=== PATIENT | male | born 1995 | race Two or more races ===

== ENCOUNTER 2016-12-19 10:35 | Emergency (ER) | payer SELFPAY ==
[2016-12-19 16:35] VITALS: BP 136/86
[2016-12-19] MEDS ORDERED: TRIAMCINOLONE ACETONIDE 10 MG/ML IX ONE (17:15)
[2016-12-19] MEDS ORDERED: LIDOCAINE 1% HCL (LOCAL ANESTH.) INJ 20ML MDV IJ ONE (17:15)
[2016-12-19] MEDS ORDERED: TRIAMCINOLONE 40MG/ML 1ML VIAL ONE (17:17)
[2016-12-19] MEDS ORDERED: TRIAMCINOLONE 40MG/ML 1ML VIAL IX ONE (17:30)
== END 2016-12-19 18:12 | disposition home or self-care (01) ==
LOC: ER 10:41
DX: S82.001A Unspecified fracture of right patella, initial encounter for closed fracture (principal); W01.0XXA Fall on same level from slipping, tripping and stumbling without subsequent striking against object, initial encounter; Y93.89 Activity, other specified; Y92.89 Other specified places as the place of occurrence of the external cause; Y99.8 Other external cause status
CPT/HCPCS: 20610; 29505; 73564; 73700; 87205; 99285; J2001; J3301

== ENCOUNTER 2018-02-13 20:33 | Inpatient (IN) | payer MEDICAID, OTHER ==
[~2018-02-13] VITALS: Ht 165.1 cm; Wt 56.2 kg
[2018-02-13 22:30] LABS: Basophils # (auto) 0 uL; Basophils % (auto) 0.3 % (0.0-2.0); Eosinophils # (auto) 0 uL; Eosinophils % (auto) 0.4 % (0.0-7.0); Hematocrit 39.6 % (41.0-53.0); Hemoglobin 13.3 g/dL (13.5-17.5); Lymphocytes # (auto) 1.2 uL; Lymphocytes % (auto) 10.4 % (10.0-50.0); Mean Corpuscular Hemoglobin 29.3 pg (28.0-32.0); Mean Corpuscular Hgb Conc. 33.7 g/dL (32.0-36.0); Monocytes # (auto) 0.6 uL; Monocytes % (auto) 5.5 % (0.0-12.0); Neutrophils # (auto) 9.2 uL; Neutrophils % (auto) 83.4 % (37.0-80.0); Nucleated Red Blood Cells % 0.1 %; Platelet Count (auto) 220 10^3/uL (140-450); Red Blood Cells 4.56 10^6/uL (4.5-5.90); Red Cell Distribution Width 13.5 % (11.8-14.3); White Blood Cell 11.1 10^3/uL (4.4-10.8)
[2018-02-13 22:43] LABS: Albumin 3.6 g/dL (3.4-5.0); Calcium 8.7 mg/dL (8.5-10.1); Magnesium 2.1 mg/dL (1.6-2.6); Potassium 4.2 mmol/L (3.5-5.1)
[2018-02-13 22:47] LABS: BUN/Creatinine Ratio 2.7
[2018-02-13 22:51] LABS: Bilirubin, Total 0.8 mg/dL (0.2-1.0); Total Protein 7.9 g/dL (6.4-8.2)
[2018-02-13 22:53] LABS: INR 0.94 (0.9-1.15); Partial Thromboplastin Time 27.9 sec (23.78-33.04); Prothrombin Time 10.1 sec (9.27-12.13)
[2018-02-13] MEDS ORDERED: diphenhdrAMINE HCL 25 MG CAP PO ONE (23:00)
[2018-02-13] MEDS ORDERED: PANTOPRAZOLE 40 MG/10 ML VIAL IV ONE ×2 (23:06→23:15)
[2018-02-14] MEDS ORDERED: ACETAMINOPHEN 500 MG TAB PO PRN (03:15)
[2018-02-14] MEDS ORDERED: ENOXAPARIN SOD 60 MG/0.6 ML SYRINGE SC ONE (03:15)
[2018-02-14] MEDS ORDERED: cloNIDine HCL 0.1 MG TAB PO ONE (03:30)
[2018-02-14 04:30] VITALS: BP 160/86
[2018-02-14] MEDS: hydrALAZINE HCL 25 MG TAB PO SCH ×4 (06:12→23:49)
[2018-02-14] MEDS: HEPARIN SODIUM (PORCINE) 5000 UNITS/ML 1ML VIAL SC SCH ×3 (06:12→22:18)
[2018-02-14 08:09] LABS: Basophils # (auto) 0.1 uL; Basophils % (auto) 0.7 % (0.0-2.0); Eosinophils # (auto) 0.2 uL; Eosinophils % (auto) 1.9 % (0.0-7.0); Hematocrit 38.3 % (41.0-53.0); Hemoglobin 12.6 g/dL (13.5-17.5); Lymphocytes % (auto) 24.5 % (10.0-50.0); Mean Corpuscular Hemoglobin 28.8 pg (28.0-32.0); Mean Corpuscular Hgb Conc. 33.1 g/dL (32.0-36.0); Monocytes # (auto) 0.9 uL; Monocytes % (auto) 11.1 % (0.0-12.0); Neutrophils % (auto) 61.8 % (37.0-80.0); Nucleated Red Blood Cells % 0.1 %; Platelet Count (auto) 203 10^3/uL (140-450); Red Cell Distribution Width 13.8 % (11.8-14.3); White Blood Cell 8.1 10^3/uL (4.4-10.8)
[2018-02-14 08:22] LABS: BUN/Creatinine Ratio 3.1; Calcium 9.1 mg/dL (8.5-10.1); Potassium 5.5 mmol/L (3.5-5.1)
[2018-02-14] MEDS: CALCIUM ACETATE 667 MG CAP PO SCH ×3 (08:23→18:00)
[2018-02-14 09:00] VITALS: BP 146/74
[2018-02-14] MEDS: NIFEdipine ER 30 MG TAB PO SCH (09:33)
[2018-02-14] MEDS: LABETALOL HCL 200 MG TAB PO SCH ×2 (09:35→22:17)
[2018-02-14] MEDS: ASPirin-EC 81 mg tab PO SCH (10:56)
[2018-02-14 13:00] VITALS: BP 142/94
[2018-02-14 16:52] VITALS: BP 135/79
[2018-02-15 05:09] VITALS: BP 156/97
[2018-02-15] MEDS: hydrALAZINE HCL 25 MG TAB PO SCH ×3 (06:20→18:00)
[2018-02-15 07:02] LABS: Basophils # (auto) 0 uL; Basophils % (auto) 0.8 % (0.0-2.0); Eosinophils # (auto) 0.2 uL; Eosinophils % (auto) 3.8 % (0.0-7.0); Hematocrit 36.5 % (41.0-53.0); Hemoglobin 12.1 g/dL (13.5-17.5); Lymphocytes # (auto) 1.8 uL; Lymphocytes % (auto) 29.5 % (10.0-50.0); Mean Corpuscular Hemoglobin 28.9 pg (28.0-32.0); Mean Corpuscular Hgb Conc. 33.1 g/dL (32.0-36.0); Mean Corpuscular Volume 87.2 fL (80.0-100.0); Monocytes # (auto) 0.8 uL; Monocytes % (auto) 12.6 % (0.0-12.0); Neutrophils # (auto) 3.3 uL; Neutrophils % (auto) 53.3 % (37.0-80.0); Nucleated Red Blood Cells % 0.1 %; Platelet Count (auto) 227 10^3/uL (140-450); Red Blood Cells 4.19 10^6/uL (4.5-5.90); Red Cell Distribution Width 13.8 % (11.8-14.3); White Blood Cell 6.2 10^3/uL (4.4-10.8)
[2018-02-15 07:23] LABS: BUN/Creatinine Ratio 3.7; Calcium 8.8 mg/dL (8.5-10.1)
[2018-02-15 07:31] LABS: Potassium 5.6 mmol/L (3.5-5.1)
[2018-02-15] MEDS: CALCIUM ACETATE 667 MG CAP PO SCH ×3 (08:40→18:00)
[2018-02-15 09:00] VITALS: BP 151/86
[2018-02-15] MEDS: NIFEdipine ER 30 MG TAB PO SCH ×2 (10:00→11:18)
[2018-02-15] MEDS: LABETALOL HCL 200 MG TAB PO SCH ×2 (11:16→11:20)
[2018-02-15] MEDS: ASPirin-EC 81 mg tab PO SCH ×2 (11:17→11:20)
[2018-02-15] MEDS: HEPARIN SODIUM (PORCINE) 5000 UNITS/ML 1ML VIAL SC SCH (11:19)
[2018-02-15] MEDS: LACTULOSE 20Gm/30ML SOLN PO PRN ×2 (11:20→11:46)
[2018-02-15] MEDS ORDERED: NIFE60TA59 PO (12:21)
[2018-02-15] MEDS ORDERED: LABE300T3 PO (12:21)
[2018-02-15] MEDS ORDERED: CALC667C PO (12:21)
[2018-02-15] MEDS ORDERED: CINA30TA2 PO (12:21)
[2018-02-15] MEDS ORDERED: HYDR-4296 PO (12:21)
[2018-02-15 13:00] VITALS: BP 161/100
[2018-02-15 15:08] VITALS: BP 150/90
[2018-02-15 17:00] VITALS: BP 149/95
== END 2018-02-15 17:20 | disposition home or self-care (01) | DRG 47 ==
LOC: ER 20:33 → TELE 20:34 → TELE-WESTW 02-14 04:20
PROVIDERS: ADMIT Nurse Practitioner Family; ATTEND Internal Medicine
PROC: 5A1D70Z Performance of Urinary Filtration, Intermittent, Less than 6 Hours Per Day (ICD-10-PCS; principal; 2018-02-15)
DX: G45.9 Transient cerebral ischemic attack, unspecified (principal); I13.2 Hypertensive heart and chronic kidney disease with heart failure and with stage 5 chronic kidney disease, or end stage renal disease; N18.6 End stage renal disease; E87.5 Hyperkalemia; Z99.2 Dependence on renal dialysis; H53.8 Other visual disturbances; I50.9 Heart failure, unspecified
CPT/HCPCS: 36415; 70450; 70551; 78582; 80048; 80053; 80061; 83735; 83880; 84443; 84484; 85025; 85379; 85610; 85730; 87081; 90935; 93306; 93886; 96374; C9113